=== PATIENT | male | born 1990 | race Caucasian/White ===

== ENCOUNTER 2023-11-28 09:18 | Emergency (ER) | payer MEDICAID ==
[~2023-11-28] VITALS: Ht 167.6 cm; Wt 68.0 kg
[2023-11-28 09:28] VITALS: BP_SYST 115; PULSE 85; RESP 18; TEMP 98.3; O2SAT 98
== END 2023-11-28 10:58 | disposition home or self-care (01) ==
LOC: SED 09:18
DX: S93.491A Sprain of other ligament of right ankle, initial encounter (principal); X50.1XXA Overexertion from prolonged static or awkward postures, initial encounter; Y93.67 Activity, basketball; Y92.89 Other specified places as the place of occurrence of the external cause; Y99.8 Other external cause status
CPT/HCPCS: 99283